=== PATIENT | male | born 1970 | race Caucasian/White ===

== ENCOUNTER 2020-06-06 15:03 | Outpatient (CLI) | payer MEDICARE, MEDICAID, SELFPAY ==
--- NOTE | ~2020-06-06 | XR_ITS ---
XR hip RT 2V w AP pelvis 06/06/2020 15:33 Indication: Right hip pain Procedure: AP pelvis and 2 views right hip Comparison: No prior studies for comparison. Findings: There is mild symmetric osteoarthritis of the hips. No acute fracture, subluxation or dislo cation. Pelvic rings are intact. Sacral foramen are symmetric. Impression: 1: Mild symmetric osteoarthritis of the hips. Reviewed, dictated and finalized at location A. Impression: 1: Mild symmetric osteoarthritis of the hips.
== END 2020-06-06 15:04 | disposition home or self-care (01) ==
LOC: CHSIMG 15:07
PROVIDERS: PCP Family Medicine; Visit Provider Family Medicine
DX: M25.551 Pain in right hip (principal); M16.11 Unilateral primary osteoarthritis, right hip
CPT/HCPCS: 73502

== ENCOUNTER 2020-06-19 17:29 | Outpatient (RCR) | payer MEDICARE, MEDICAID, SELFPAY ==
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
--- NOTE | 2020-07-21 11:25 | PCPTNOTE ---
Mr. Rosales attended at total of 2 treatment sessions. He has failed to return to the clinic since his last session on 06/21/20. He will be discharged from our care. Thank you for the referral of this patient. Abdulkadir Porter, MPT
== END 2020-06-21 14:50 | disposition home or self-care (01) ==
LOC: CHSPT 17:29
PROVIDERS: PCP Family Medicine; Visit Provider Family Medicine
DX: M25.551 Pain in right hip (principal)
CPT/HCPCS: 97014; 97110; 97161; G0283

== ENCOUNTER 2021-01-22 13:52 | Outpatient (CLI) | payer MEDICARE, SELFPAY ==
[2021-01-22 14:09] LABS: Basophils Absolute Auto 0.05 K/mm3 (0.00-0.10); Basophils Percent Auto 0.6 % (0.0-1.0); Eosinophils Absolute Auto 0.18 K/mm3 (0.02-0.50); Eosinophils Percent Auto 2.1 % (1.0-6.0); Hematocrit 41.3 % (40.0-54.0); Hemoglobin 13.7 g/dL (14.0-18.0); Immature Granulocyte Absolute 0.22 K/mm3 (0.00-0.00); Immature Granulocyte Percent A 2.5 % (0.0-0.0); Lymphocytes Absolute Auto 2.38 K/mm3 (1.10-4.50); Lymphocytes Percent Auto 27.3 % (18.0-42.0); Mean Corpuscular HGB Conc 33.2 g/dL (32.0-36.0); Mean Corpuscular Hemoglobin 30.7 pg (27.0-31.0); Mean Corpuscular Volume 92.6 fL (78.0-102.0); Mean Platelet Volume 8.9 fl (8.7-11.0); Monocytes Absolute Auto 0.66 K/mm3 (0.10-0.90); Monocytes Percent Auto 7.6 % (2.0-11.0); Neutrophils Absolute Auto 5.2 K/mm3 (1.7-7.2); Neutrophils Percent Auto 59.9 % (50.0-70.0); Platelet Count Result 292 K/mm3 (150-420); Red Blood Count 4.46 M/mm3 (4.70-6.10); Red Cell Distribution Width 13.2 % (11.6-14.4); White Blood Count 8.7 K/mm3 (4.8-10.8)
[2021-01-22 14:34] LABS: Alanine Aminotransferase 22 U/L (16-63); Albumin Level 3.5 g/dL (3.4-5.0); Alkaline Phosphatase 78 U/L (46-116); Anion Gap 7 mmol/L (8-16); Aspartate Amino Transferase < 10 U/L (15-37); Bilirubin,Total 0.3 mg/dL (0.00-1.00); Blood Urea Nitrogen 19 mg/dL (7-18); Carbon Dioxide 30 mmol/L (21-32); Chloride 104 mmol/L (98-108); Cholesterol 247 mg/dL (0-200); Estimated Glomerular Filt Rate > 60; Glucose 93 mg/dL (70-99); HDL Direct 38 mg/dL (40-60); LDL Cholesterol Calculated 129 mg/dL (<130); Osmolality Calculated 294 mOsm/kg (285-295); Potassium 4.1 mmol/L (3.5-5.1); Sodium 141 mmol/L (136-145); Total Protein 6.8 g/dL (6.4-8.2); Triglycerides 400 mg/dL (0-150)
[2021-01-22 14:55] LABS: LDL Cholesterol Direct 145 mg/dL (0-130)
== END 2021-01-22 13:53 | disposition home or self-care (01) ==
LOC: CHSLAB 13:59
PROVIDERS: PCP Family Medicine; Visit Provider Nurse Practitioner Family
DX: E78.5 Hyperlipidemia, unspecified (principal)
CPT/HCPCS: 36415; 80053; 80061; 83721; 85025

== ENCOUNTER 2021-03-13 03:09 | Emergency (ER) | payer MEDICARE, MEDICAID, SELFPAY ==
[2021-03-13 03:09] VITALS: BP 109/90; PULSE 102; RESP 20; TEMP 36.6; O2SAT 98
--- NOTE | 2021-03-13 03:14 | ED.WOUNDLAC ---
HPI - Wound/Laceration General Chief Complaint: Wound/Laceration Stated Complaint: arm laceratiuon Time Seen by Provider: 03/13/21 03:10 History of Present Illness HPI narrative: 50-year-old male patient is here with complaints of injury to his right arm with the saw while he was working on cleaning his basement just prior to arrival here. He states that the saw hit him in the right arm after he lost control of it. He has also received some abrasions to the upper chest as well as right hand. He denies injuries. Patient has no prior medical history takes no routine medications and has no known allergies. Patient is unsure of his tetanus status. The patient states that he can move his wrist and elbow and has some tingling to the index and the middle finger. Patient has controlled bleeding with pressure Related Data Allergies Allergy/AdvReac Type Severity Reaction Status Date / Time No Known Allergies Allergy Verified 01/22/21 08:18 Review of Systems Review of Systems: All systems reviewed & are unremarkable except as noted in HPI and below PMFSH Past Medical History Medical History GERD (gastroesophageal reflux disease) Hyperlipidemia Overweight PTSD (post-traumatic stress disorder) Family History Family History Father Brain cancer CKD (chronic kidney disease) Social History Social History Smoking status: Former smoker Tobacco type: cigarettes Additional smoking assessment comments: Quit 2016. 30 pack-year history. Alcohol intake: current Alcohol use details: social Substance use: former Substance use type: amphetamines and methamphetamine Exam Const: General: cooperative, healthy appearing, no acute distress (mild distress), well developed, alert and awake Nutritional Appearance: average body habitus and well nourished Orientation/consciousness: patient oriented x3 Limitations: no limitations HENMT: Head: normal to inspection and atraumatic Ears: external ears normal General nose exam: Normal external nose present Face and sinus: normal facial exam Mouth: Yes Normal oral and palatal mucosa present Eyes: General: appearance normal, both eyes and all related structures Pupils: Equal, round and reactive pupils present EOM: EOMs intact bilaterally Neck: Neck: normal visual inspection Chest: Chest palpation & inspection: normal inspection of the chest and other (linear superficial abrasion to the right chest above the nipple line ) Resp: Effort & Inspection: normal respiratory effort and able to speak in complete sentences Auscultation: clear to auscultation bilaterally Percussion: percussion normal Cardio: Jugular venous distension: no JVD Heart sounds: S1 normal heart sound present, S2 normal heart sound present and no murmurs Peripheral pulses: Peripheral pulses 2+ throughout, radial pulses present and ulnar radial pulses present GI: Inspection: normal to inspection GI Palp: No abdominal tenderness Auscultation: normal bowel sounds Back/Spine/Pelvis: Cervical Spine: normal cervical lordosis Thoracic/Lumbar Spine: thoracic and lumbar spine normal to inspection Pelvis: no pain with anterior-posterior compression Skin: General skin exam: normal color, no rashes or lesions noted, elasticity normal and turgor normal Neuro: General: patient oriented x3, gait normal and tone normal Cranial nerves: Yes CN's II-XII intact bilaterally Speech: normal speech Gait exam (Neuro): Normal gait present Motor exam (neuro): 5/5 motor strength present throughout Sensory Exam: normal sensation Extrem: General: full ROM Right upper extremity: normal to inspection, full ROM, normal capillary refill, no joint enlargement, shoulder/upper arm (normal) and elbow/forearm ( patient has 11 cm long laceration along the right radial /volar side) Left upper e
[2021-03-13] MEDS: TETANUS,DIPHTHERIA,AC PERTUSSIS ADULT 0.5 ML (ADACEL) IM (03:42)
[2021-03-13] MEDS: LIDOCAINE HCL 1% LOCAL INJ 20 ML VIAL INFILTRATE (03:42)
[2021-03-13] MEDS: AMOXICILLIN/CLAVULANATE K 875-125 MG TAB 1 TABLET PO (04:00)
[2021-03-13] MEDS: NEOMYCIN/POLYMYXIN/BACITRACIN OINTMENT PACKET 2 PACKET (04:00)
[2021-03-13 04:02] VITALS: BP 121/78; PULSE 94; RESP 20; TEMP 37.1; O2SAT 98
[2021-03-13] MEDS: KETOROLAC (*BKC) 60 MG/2 ML VIAL IM (04:11)
== END 2021-03-13 04:25 | disposition home or self-care (01) ==
PROVIDERS: Emergency Provider Emergency Medicine; PCP Family Medicine
DX: S41.111A Laceration without foreign body of right upper arm, initial encounter (principal); S20.319A Abrasion of unspecified front wall of thorax, initial encounter; W27.0XXA Contact with workbench tool, initial encounter
CPT/HCPCS: 12001; 12034; 90471; 90715; 96372; 99283; A4565; A9270; J1885

== ENCOUNTER 2021-03-17 11:23 | Emergency (ER) | payer MEDICARE, MEDICAID, SELFPAY ==
[2021-03-17 12:00] VITALS: BP 119/92; PULSE 91; RESP 17; TEMP 37; O2SAT 97
--- NOTE | 2021-03-17 12:32 | ED.LOWEXIN ---
HPI - Extremity Injury (Lower) General Chief Complaint: Extremity Problem,Nontraumatic Stated Complaint: L lower leg pain/swelling Time Seen by Provider: 03/17/21 12:32 Source: patient Mode of arrival: ambulatory Limitations: no limitations History of Present Illness HPI Narrative: Patient comes in with complaints of his left leg being swelled for the last 2 days. Swelling is moderately severe, and associated with mild pain from the swelling in his calf. He has not been short of breath. He states he has had a clot in the past. Onset (ago): day(s) Place: home Severity: moderate Relieving factors: rest Exacerbating factors: movement Other symptoms: none Related Data Home Medications Medication Instructions Recorded Confirmed atorvastatin 40 mg PO DAILY 03/17/21 03/17/21 icosapent ethyl 1 g PO DAILY 03/17/21 03/17/21 Allergies Allergy/AdvReac Type Severity Reaction Status Date / Time No Known Allergies Allergy Verified 03/13/21 14:30 Review of Systems Constitutional: Constitutional: Reports no additional constitutional complaints Eyes: Eyes: Reports no additional eye complaints ENT: Reports system reviewed and no additional complaints, except as documented Cardiovascular: Cardiovascular: Reports no additional cardiovascular complaints Respiratory: Respiratory: Reports no additional respiratory complaints Gastrointestinal: Gastrointestinal: Reports no additional gastrointestinal complaints Genitourinary: Genitourinary: Reports no additional male genitourinary complaints Musculoskeletal: Musculoskeletal: Reports no additional musculoskeletal complaints Integumentary/Breasts: Skin/Breast: Reports system reviewed and no additional complaints, except as docu Neurologic: Reports system reviewed and no additional complaints, except as documented Psychiatric: Psychiatric: Reports no additional psychiatric complaints Endocrine: Endocrine: Reports no additional endocrine complaints Hematologic/Lymphatic: Hematologic/Lymphatic: Reports no additional hematologic/lymphatic complaints Allergic/Immunologic: Allergic/Immunologic: Reports no additional allergic/immunologic complaints [facility] Past Medical History Medical History (Updated 03/17/21 @ 12:48 by Gerber Galeas MD) GERD (gastroesophageal reflux disease) Hyperlipidemia Overweight PTSD (post-traumatic stress disorder) Surgical History Surgical History (Updated 03/17/21 @ 12:46 by Gerber Galeas MD) History of orthopedic surgery Family History Family History Father Brain cancer CKD (chronic kidney disease) Social History Social History Smoking status: Former smoker Tobacco type: cigarettes Additional smoking assessment comments: Quit 2016. 30 pack-year history. Alcohol intake: current Alcohol use details: social Substance use: current Substance use type: marijuana, amphetamines and methamphetamine Exam Const: General: no acute distress and alert Orientation/consciousness: patient oriented x3 HENMT: Head: normal to inspection Ears: external ears normal and TM's normal bilaterally General nose exam: Normal external nose present Mouth: Yes Normal oral and palatal mucosa present Throat: posterior oropharynx normal Eyes: Conjunctivae: conjunctivae normal Neck: Neck: normal visual inspection Chest: Chest palpation & inspection: normal inspection of the chest Resp: Effort & Inspection: normal respiratory effort Auscultation: clear to auscultation bilaterally Cardio: Rate: regular rate Rhythm: regular rhythm GI: GI Palp: Yes Soft to palpation (nontender) Back/Spine/Pelvis: Back: no CVA tenderness Skin: General skin exam: normal color Neuro: General: patient oriented x3 and moves all extremities Extrem: Other: Left lower leg with 2+ edema Psych: Appearance: grossly normal Mental Status: mental status gutierrez
[2021-03-17 12:58] LABS: Basophils Absolute Auto 0.03 K/mm3 (0.00-0.10); Basophils Percent Auto 0.4 % (0.0-1.0); Eosinophils Absolute Auto 0.18 K/mm3 (0.02-0.50); Eosinophils Percent Auto 2.2 % (1.0-6.0); Hematocrit 39.4 % (40.0-54.0); Hemoglobin 12.7 g/dL (14.0-18.0); Immature Granulocyte Absolute 0.06 K/mm3 (0.00-0.00); Immature Granulocyte Percent A 0.7 % (0.0-0.0); Lymphocytes Absolute Auto 1.73 K/mm3 (1.10-4.50); Mean Corpuscular HGB Conc 32.2 g/dL (32.0-36.0); Mean Corpuscular Volume 93.1 fL (78.0-102.0); Mean Platelet Volume 9.1 fl (8.7-11.0); Monocytes Absolute Auto 0.74 K/mm3 (0.10-0.90); Neutrophils Absolute Auto 5.5 K/mm3 (1.7-7.2); Neutrophils Percent Auto 66.7 % (50.0-70.0); Platelet Count Result 142 K/mm3 (150-420); Red Blood Count 4.23 M/mm3 (4.70-6.10); Red Cell Distribution Width 13.2 % (11.6-14.4); White Blood Count 8.2 K/mm3 (4.8-10.8)
[2021-03-17 13:27] LABS: Prothrombin Time 9.8 Seconds (9.64-11.0)
[2021-03-17 13:28] LABS: D Dimer 10.89 mg/L (0.19-0.50); INR < 0.9; Partial Thromboplastin Time 24.4 SEC (23.90-30.70)
[2021-03-17] MEDS: ENOXAPARIN 100 MG/ML SYRINGE 90 MG SUB-Q (13:49)
[2021-03-17 14:05] VITALS: BP 120/76
[2021-03-17 18:49] LABS: Anion Gap 8 mmol/L (8-16); Carbon Dioxide 25 mmol/L (21-32); Chloride 104 mmol/L (98-108); Potassium 3.8 mmol/L (3.5-5.1)
[2021-03-17 18:50] LABS: Bilirubin,Total < 0.1 mg/dL (0.00-1.00); Blood Urea Nitrogen 10 mg/dL (7-18); Calcium 8.9 mg/dL (8.5-10.1); Estimated Glomerular Filt Rate > 60; Glucose 82 mg/dL (70-99); Osmolality Calculated 282 mOsm/kg (285-295)
[2021-03-17 18:51] LABS: Alanine Aminotransferase 18 U/L (16-63); Albumin Level 3.6 g/dL (3.4-5.0); Alkaline Phosphatase 69 U/L (46-116); Aspartate Amino Transferase 20 U/L (15-37); Total Protein 6.4 g/dL (6.4-8.2)
[2021-03-17 18:52] LABS: Sodium 137 mmol/L (136-145)
== END 2021-03-17 14:05 | disposition home or self-care (01) ==
PROVIDERS: Emergency Provider Emergency Medicine; PCP Family Medicine
DX: I82.402 Acute embolism and thrombosis of unspecified deep veins of left lower extremity (principal)
CPT/HCPCS: 36415; 80053; 85025; 85380; 85610; 85730; 96372; 99283; J1650

== ENCOUNTER 2021-03-19 14:28 | Outpatient (CLI) | payer MEDICARE, MEDICAID, SELFPAY ==
--- NOTE | ~2021-03-19 | US_ITS ---
EXAMINATION: US venous doppler [facility] DATE: 03/19/2021 15:17 INDICATION: Left lower limb pain. TECHNIQUE: Grayscale ultrasound images without and with compression and Doppler ultrasound images of the left lower extremity veins were obtained. COMPARISON: None. FINDINGS: The visualized portions of left common femoral vein, profunda (deep) femoral vein, and greater saphen ous vein outflow are patent. There is thrombus in left femoral, popliteal, posterior tibial, peroneal , and gastrocnemius veins. IMPRESSION: 1. Acute deep vein thrombosis involving left femoral, popliteal, posterior tibial, peroneal, and gas trocnemius veins. Reviewed, dictated and finalized at location A. IMPRESSION: 1. Acute deep vein thrombosis involving left femoral, popliteal, posterior tib ial, peroneal, and gastrocnemius veins.
== END 2021-03-19 14:29 | disposition home or self-care (01) ==
LOC: CHSIMG 14:30
PROVIDERS: PCP Family Medicine; Visit Provider Emergency Medicine
DX: I82.402 Acute embolism and thrombosis of unspecified deep veins of left lower extremity (principal)
CPT/HCPCS: 93971

== ENCOUNTER 2021-03-21 09:09 | Outpatient (CLI) | payer MEDICARE, SELFPAY | END 2021-03-21 09:10 | disposition home or self-care (01) | LOC: CHSIMG 09:10 | PROVIDERS: PCP Family Medicine; Visit Provider Nurse Practitioner Family | DX: M54.5 Low back pain (principal) | CPT/HCPCS: 99199 ==

== ENCOUNTER 2021-03-31 08:47 | Outpatient (CLI) | payer MEDICARE, MEDICAID, SELFPAY ==
--- NOTE | ~2021-03-31 | MR_ITS ---
EXAMINATION: MR lumbar spine wo con DATE: 03/31/2021 10:25 INDICATION: Low back pain. TECHNIQUE: Magnetic resonance imaging (MRI) of the lumbar spine was performed without intravenous con trast. Sequences included sagittal T2-weighted FSE, sagittal T2-weighted FS FSE, sagittal T1-weighted FSE, and axial T2-weighted FSE. COMPARISON: None FINDINGS: There is 6 degrees levocurvature of lumbar spine. There is mild chronic anterior wedging of T12 vertebral body, likely physiologic. There is mildly decreased disc height at L3-L4 and L4-L5. Th e distal spinal cord signal intensity is normal. The conus medullaris is at L1. The following disc le vels are specifically discussed: L1-L2: The disc does not extend beyond the endplate margin. There is mild bilateral facet joint osteo arthritis. There is no neural foraminal stenosis. There is no central canal stenosis. L2-L3: The disc does not extend beyond the endplate margin. There is mild bilateral facet joint osteo arthritis. There is no neural foraminal stenosis. There is no central canal stenosis. L3-L4: The disc is bulging and has an annular fissure. There is mild bilateral facet joint osteoarthr itis. There is mild bilateral neural foraminal stenosis. There is mild central canal stenosis. L4-L5: The disc is bulging and has an annular fissure. There is mild bilateral facet joint osteoarthr itis. There is mild right and moderate left neural foraminal stenosis. There is mild central canal st enosis. L5-S1: There is a central protrusion. There is moderate bilateral facet joint osteoarthritis. There i s moderate right and mild left neural foraminal stenosis. There is mild central canal stenosis. IMPRESSION: 1. Moderate lumbar spondylosis. Reviewed, dictated and finalized at location A.
== END 2021-03-31 08:48 | disposition home or self-care (01) ==
LOC: CHSIMG 08:51
PROVIDERS: PCP Nurse Practitioner Family; Visit Provider Nurse Practitioner Family
DX: M54.5 Low back pain (principal)
CPT/HCPCS: 72148